=== PATIENT | female | born 1970 | race Caucasian/White ===

== ENCOUNTER 2019-06-27 22:45 | Inpatient (IN) | payer BC, OTHER, SELFPAY ==
[2019-06-27 22:47] VITALS: BMI 38.6
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
[2019-06-27 23:31] LABS: Basophils % 0.4 %; Eosinophils # 0.2 10^3/uL (0.0-0.8); Eosinophils % 2.4 %; Hematocrit 42.1 % (37.0-47.0); Hemoglobin 13.7 g/dL (11.5-15.3); Lymphocytes # 2.7 10^3/uL (0.8-4.8); Lymphocytes % 32.9 %; Mean Corpuscular HGB Conc 32.5 g/dL (30.0-36.0); Mean Corpuscular Hemoglobin 29.6 pg (28.0-34.0); Mean Corpuscular Volume 90.9 fL (81-99); Mean Platelet Volume 10.6 fL (7.4-10.4); Monocytes # 0.6 10^3/uL (0.2-0.9); Neutrophils # 4.7 10^3/uL (1.8-7.7); Neutrophils % 57.2 %; Nucleated Red Blood Cells % 0 %; Platelet Count 354 10^3/cmm (130-400); Red Blood Count 4.63 10^6/uL (4.1-5.3); Red Cell Distribution Width 13.6 % (12.1-15.1); White Blood Count 8.2 10^3/uL (4.0-10.0)
[2019-06-27 23:45] LABS: Alanine Aminotransferase 12 U/L (0-33); Albumin Level 4.3 g/dL (3.5-5.2); Alcohol Level 218 mg/dL (0-10); Alkaline Phosphatase 103 IU/L (35-105); Anion Gap 20.4 (5-19); Aspartate Amino Transferase 18 U/L (0-32); Blood Urea Nitrogen 7 mg/dL (6-20); Carbon Dioxide 22 mmol/L (22-29); Chloride 102 mmol/L (98-107); Globulin 3.2 g/dL (1.3-4.6); Glomerular Filtration Rate 75.9 mL/min (90-130); Glucose 102 mg/dL (65-115); Osmolality Calculated 288 mOsm/kg (285-295); Potassium 3.4 mmol/L (3.5-5.1); Sodium 141 mmol/L (136-145); Total Bilirubin 0.2 mg/dL (0.15-1.2); Total Protein 7.5 g/dL (6.6-8.7)
[2019-06-27 23:55] LABS: Acetaminophen < 5.0 ug/mL (10-30); Salicylate < 0.3 mg/dL (3-10)
[2019-06-28 02:10] VITALS: BP 87/56; PULSE 108; RESP 18; TEMP 36.6; O2SAT 97
[2019-06-28 06:00] VITALS: BP 92/50; PULSE 101; RESP 18; TEMP 36.9; O2SAT 95
[2019-06-28] MEDS: folic acid 1 mg Tablet PO (09:08)
[2019-06-28] MEDS: thiamine 100 mg Tablet PO (09:08)
[2019-06-28] MEDS: multivitamin therapeutic Tablet 1 TAB PO (09:08)
[2019-06-28] MEDS: aspirin 81 mg EC Tablet PO (10:48)
[2019-06-28] MEDS: amlodipine 5 mg Tablet PO (10:49)
[2019-06-28] MEDS: duloxetine 60 mg Capsule PO ×2 (10:49→17:49)
[2019-06-28] MEDS: pantoprazole DR 40 mg Tablet PO (10:49)
[2019-06-28 10:51] VITALS: BP 135/83
[2019-06-28] MEDS: losartan 50 mg Tablet PO ×2 (10:51→17:48)
[2019-06-28 12:12] LABS: Amphetamines Screen Urine Negative (Negative); Barbiturates Screen Urine Negative (Negative); Benzodiazepines Screen Urine Negative (Negative); Cocaine Screen Urine Negative (Negative); Opiate Screen Urine Negative (Negative); PCP Screen Urine Negative (Negative); THC Screen Urine Negative (Negative)
[2019-06-28 14:00] VITALS: BP 135/88; PULSE 107; RESP 18; TEMP 36.8; O2SAT 98
[2019-06-28 17:48] VITALS: BP 147/95
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
[2019-06-28] MEDS: trazodone 100 mg Tablet PO (20:10)
[2019-06-28] MEDS: nortriptyline 25 mg Capsule PO (20:10)
[2019-06-28] MEDS: quetiapine 100 mg Tablet PO (20:10)
--- NOTE | 2019-06-28 20:11 | PC.NURSE ---
HS meds given at this time.
[2019-06-28 21:26] VITALS: BP 169/97; PULSE 92; RESP 18; TEMP 36.6; O2SAT 97
[2019-06-29 06:00] VITALS: BP 128/85; PULSE 76; RESP 19; TEMP 36.5; O2SAT 96
[2019-06-29 08:52] VITALS: BP 117/77
[2019-06-29] MEDS: multivitamin therapeutic Tablet 1 TAB PO (08:52)
[2019-06-29] MEDS: amlodipine 5 mg Tablet PO (08:52)
[2019-06-29] MEDS: losartan 50 mg Tablet PO (08:52)
[2019-06-29] MEDS: thiamine 100 mg Tablet PO (08:52)
[2019-06-29] MEDS: folic acid 1 mg Tablet PO (08:52)
[2019-06-29] MEDS: pantoprazole DR 40 mg Tablet PO (08:53)
[2019-06-29] MEDS: duloxetine 60 mg Capsule PO (08:53)
[2019-06-29] MEDS: aspirin 81 mg EC Tablet PO (08:53)
[2019-06-29] MEDS: cholecalciferol (vitamin D3) 5,000 unit Tablet 5000 UNIT PO (08:53)
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
[2019-06-29] MEDS: ARIPiprazole 10 mg Tablet PO (12:13)
[2019-06-29 12:14] VITALS: BP 117/77; PULSE 76; RESP 19; TEMP 36.5; O2SAT 96
[2019-06-29 12:16] VITALS: BP 117/77; PULSE 76; RESP 19; TEMP 36.5; O2SAT 96
== END 2019-06-29 12:49 | disposition home or self-care (01) | DRG 885 ==
LOC: ER 06-28 00:24 → NP 06-28 00:51
PROVIDERS: Admitting Provider Psychiatry & Neurology Psychiatry; Emergency Provider Emergency Medicine; Family Provider Internal Medicine; PCP Internal Medicine; Visit Provider Psychiatry & Neurology Psychiatry
DX: F32.2 Major depressive disorder, single episode, severe without psychotic features (principal); R45.851 Suicidal ideations; Z79.1 Long term (current) use of non-steroidal anti-inflammatories (NSAID); Z79.82 Long term (current) use of aspirin
CPT/HCPCS: 12345; 36415; 80053; 80307; 85025; 99284

== ENCOUNTER 2019-08-20 15:16 | Outpatient (CLI) | payer BC, OTHER, SELFPAY ==
--- NOTE | 2019-08-20 15:25 | MM_ITS ---
WS: [id number] BILATERAL SCREENING DIGITAL MAMMOGRAM WITH CAD HISTORY: Screening. COMPARISON: 02/09/2018 and 10/06/2016 Bilateral CC and MLO views submitted. Computer aided detection analyzed. Breast composition: The breasts are heterogeneously dense, which may obscure small masses. No suspici ous masses, microcalcifications or architectural distortion. Benign calcification central LEFT breast . MM/[id number] IMPRESSION: BI-RADS: 2-Benign FOLLOW UP: 1 Year Follow-up
== END 2019-08-20 15:17 | disposition home or self-care (01) ==
LOC: RADSHAW 15:21
PROVIDERS: Family Provider Internal Medicine; PCP Internal Medicine; Visit Provider Internal Medicine
DX: Z12.31 Encounter for screening mammogram for malignant neoplasm of breast (principal)
CPT/HCPCS: 77067

== ENCOUNTER 2019-12-01 08:54 | Emergency (ER) | payer BC, OTHER, SELFPAY ==
[2019-12-01 08:58] VITALS: BP 141/90; PULSE 97; RESP 18; TEMP 36.7; O2SAT 97; BMI 36.7
[2019-12-01 09:04] VITALS: BP 141/90; PULSE 97; RESP 16; O2SAT 100
--- NOTE | 2019-12-01 09:06 | ED_ITS ---
HPI - Chest Pain General: Chief Complaint: Chest Pain Stated Complaint: CP Time Seen by Provider: 12/01/19 09:04 History of Present Illness: HPI narrative: 49-year-old female comes in complaining of chest pain. States chest pain began due to emotional stress. She took 3 nitros and 1 Ativan did not provide any relief the pain began about an hour and 20 minutes prior to presentation here. Pain radiates to her left shoulder and arm she had both a stress test within the last year which was negative and had a coronary angiogram in 2017 that showed luminal irregularities.according Dr. Thakur's note she has some endothelial dysfunction but is not presumably had an MO. She is not had any other symptoms has not recently been ill. MD complaint: chest pain Pertinent past history: other (Endothelial dysfunction) Onset (ago): hour(s) Timing of current episode: episodic and still present Prior episodes: Yes Onset: during rest Pain location: left chest Pain radiation: left arm and left shoulder Severity: mild Quality: tightness and heaviness Relieving factors: rest Exacerbating factors: stress Associated symptoms: Deny abdominal pain, dyspnea, fever(s), nausea or vomiting Treatment prior to arrival: nitroglycerin and other (Ativan) Review of Systems Const: Denies: fever(s), chills, body aches, change in appetite, fatigue or malaise ENMT: Denies: throat pain, ear or mastoid pain, nasal discharge or nasal congestion Card: Denies: chest pain, edema, dyspnea on exertion or orthopnea Resp: Denies: dyspnea, productive cough or non-productive cough GI: Denies: abdominal pain, nausea, vomiting, hematemesis, coffee ground emesis, diarrhea, constipation, bloating, hematochezia or melena : Denies: flank pain, difficulty voiding, dysuria, urinary frequency or urinary urgency Skin/Breast: Denies: rash or pruritus [facility] ED PFSH: Medical History (Updated 12/01/19 @ 12:08 by Garrett Stovall DO) Anxiety Chest pain Depression GERD (gastroesophageal reflux disease) History of lung cancer Insomnia Intervertebral disc disorder Surgical History (Updated 12/01/19 @ 09:27 by Garrett Stovall DO) S/P hysterectomy S/P lobectomy of lung S/P lumpectomy of breast S/P tonsillectomy and adenoidectomy S/P wisdom tooth extraction Family History (Updated 06/28/19 @ 19:37 by Srinath Yo) Family/Other Psychiatric illness Patient's fought in [place] and before that in [place]. He has PTSD and disability income. Other CAD (coronary artery disease) Cancer Hypertension Social History Smoking and tobacco status: never smoked History of recent travel: No Physical Exam Const: COMMON NORMALS: no acute distress GENERAL APPEARANCE: cooperative and comfortable ORIENTATION/CONSCIOUSNESS: Yes awake, Yes oriented to person, Yes oriented to place and Yes oriented to time HENMT: COMMON NORMALS: normocephalic, atraumatic and hearing grossly normal bilaterally HEAD & SCALP: normocephalic and atraumatic Eye: COMMON NORMALS: Equal, round and reactive pupils present, EOMs intact bilaterally, conjunctivae normal and no scleral icterus CONJUNCTIVA: Yes conjunctivae normal PUPIL: Yes Equal, round and reactive pupils present Neck/C-Spine: COMMON NORMALS: no JVD Resp: COMMON NORMALS: normal respiratory effort, No retractions, No use of accessory muscles and clear to auscultation bilaterally AUSCULTATION: clear to auscultation bilaterally Cardio: COMMON NORMALS: no JVD, regular rate, regular rhythm and No murmurs present (Cardio) RATE: regular rate RHYTHM: regular rhythm GI: COMMON NORMALS: Soft to palpation and No hepatosplenomegaly present AUSCULTATION: Yes normoactive bowel sounds PALPATION: Yes Soft to palpation, No Tenderness to palpation present (GI), No Guarding due to palpation present (GI) and Yes No hepatosplenomegaly present Extremity: COMMON NORMALS: normal to inspection, capillary refill normal, no clubbing, cyanosis or edema, no calf tenderness and no pedal edema Neuro: SENSORIUM/ORIENTATION: Yes oriented to person, Yes oriented to place and Yes oriented to time Skin: COMMON NORMALS: no rashes or lesions noted GENERAL SKIN EXAM: no rashes or lesions noted Course Vital Signs: Vital signs: Vital Signs Temperature 98.0 F 12/01/19 08:58 Pulse Rate 89 12/01/19 12:16 Respiratory Rate 19 H 12/01/19 12:16 Blood Pressure 139/88 12/01/19 12:16 Pulse Oximetry 100 12/01/19 12:16 MDM - Chest Pain MDM Narrative: Medical decision making narrative: Shayy patient with Dr. Thakur he is fine with letting her go he like to have her increase her Imdur. Relayed this to the patient we will have her double up on her Imdur until he sees her back. Asked her to call his office as soon as possible and make an appointment if she has any worsening or recurrent symptoms return to the emergency room Lab Data: Labs: Lab Results 12/01/19 12/01/19 12/01/19 Range/Units 09:15 09:15 09:15 WBC 5.6 (4.0-10.0) 10^3/ uL RBC 4.64 (4.1-5.3) 10^6/u L Hgb 14.1 (11.5-15.3) g/dL Hct 43.0 (37.0-47.0) % MCV 92.7 (81-99) fL MCH 30.4 (28.0-34.0) pg MCHC 32.8 (30.0-36.0) g/dL RDW 14.0 (12.1-15.1) % Plt Count 240 (130-400) 10^3/c mm MPV 11.4 H (7.4-10.4) fL Neut % (Auto) 61.2 % Lymph % (Auto) 27.8 % [place] % (Auto) 6.9 % Eos % (Auto) 3.2 % Baso % (Auto) 0.7 % Neut # (Auto) 3.44 (1.8-7.7) 10^3/u L Lymph # (Auto) 1.6 (0.8-4.8) 10^3/u L [place] # (Auto) 0.4 (0.2-0.9) 10^3/u L Eos # (Auto) 0.2 (0.0-0.8) 10^3/u L Baso # (Auto) 0.0 (0.0-0.1) 10^3/u L Nucleated RBC % (a uto) 0 % Nucleated RBCs # 0.0 /100WBC Sodium 138 (136-145) mmol/L Potassium 4.1 (3.5-5.1) mmol/L Chloride 102 (98-107) mmol/L Carbon Dioxide 27 (22-29) mmol/L Anion Gap 13.1 (5-19) BUN 10 (6-20) mg/dL Creatinine 0.8 (0.5-0.9) mg/dL GFR Calculation 75.9 L (90-130) mL/min Glucose 123 H (65-115) mg/dL Calculated Osmolal ity 283 L (285-295) mOsm/k g Calcium 9.3 (8.5-10.5) mg/dL Total Bilirubin 0.2 (0.15-1.2) mg/dL AST 24 (0-32) U/L ALT 16 (0-33) U/L Alkaline Phosphata se 78 (35-105) IU/L Troponin T Baselin e 6 (0-10) ng/L Troponin T 120 Min [place] (0-10) ng/L Delta Troponin T (0-10) ABS# Total Protein 6.7 (6.6-8.7) g/dL Albumin 3.9 (3.5-5.2) g/dL Globulin 2.8 (1.3-4.6) g/dL Lipase 17 (13-60) U/L 12/01/19 Range/Units 11:34 WBC (4.0-10.0) 10^3/ uL RBC (4.1-5.3) 10^6/u L Hgb (11.5-15.3) g/dL Hct (37.0-47.0) % MCV (81-99) fL MCH (28.0-34.0) pg MCHC (30.0-36.0) g/dL RDW (12.1-15.1) % Plt Count (130-400) 10^3/c mm MPV (7.4-10.4) fL Neut % (Auto) % Lymph % (Auto) % [place] % (Auto) % Eos % (Auto) % Baso % (Auto) % Neut # (Auto) (1.8-7.7) 10^3/u L Lymph # (Auto) (0.8-4.8) 10^3/u L [place] # (Auto) (0.2-0.9) 10^3/u L Eos # (Auto) (0.0-0.8) 10^3/u L Baso # (Auto) (0.0-0.1) 10^3/u L Nucleated RBC % (a uto) % Nucleated RBCs # /100WBC Sodium (136-145) mmol/L Potassium (3.5-5.1) mmol/L Chloride (98-107) mmol/L Carbon Dioxide (22-29) mmol/L Anion Gap (5-19) BUN (6-20) mg/dL Creatinine (0.5-0.9) mg/dL GFR Calculation (90-130) mL/min Glucose (65-115) mg/dL Calculated Osmolal ity (285-295) mOsm/k g Calcium (8.5-10.5) mg/dL Total Bilirubin (0.15-1.2) mg/dL AST (0-32) U/L ALT (0-33) U/L Alkaline Phosphata se (35-105) IU/L Troponin T Baselin e (0-10) ng/L Troponin T 120 Min [place] 6.00 (0-10) ng/L Delta Troponin T 0 (0-10) ABS# Total Protein (6.6-8.7) g/dL Albumin (3.5-5.2) g/dL Globulin (1.3-4.6) g/dL Lipase (13-60) U/L Discharge Plan Discharge Patient Disposition: Home Clinical Impression: Atypical chest pain Condition: Stable Prescriptions: Changed isosorbide mononitrate 30 mg Tablet Extended Release 24 Hr 30 mg PO BID Qty: 0 RF: 0 No Action esomeprazole magnesium [Nexium] 40 mg capsule,delayed release(DR/EC) 40 mg PO DAILY RF: 0 multivitamin Tablet 1 tab PO DAILY RF: 0 amlodipine 5 mg tablet 5 mg PO DAILY RF: 0 ibuprofen 800 mg tablet 800 mg PO TID PRN (Reason: Moderate Pain (Scale Score 5-6)) RF: 0 aspirin [Adult Low Dose Aspirin] 81 mg tablet,delayed release (DR/EC) 81 mg PO DAILY RF: 0 duloxetine 60 mg capsule,delayed release(DR/EC) 60 mg PO BID RF: 0 trazodone 100 mg tablet 200 mg PO BEDTIME RF: 0 cholecalciferol (vitamin D3) 125 mcg (5,000 unit) capsule 5,000 unit PO DAILY RF: 0 losartan 50 mg tablet 50 mg PO BID RF: 0 aripiprazole 10 mg Tablet 10 mg PO DAILY Qty: 30 RF: 1 carvedilol 6.25 mg tablet 6.25 mg PO BID RF: 0 magnesium 250 mg Tablet 250 mg PO DAILY RF: 0 albuterol sulfate 90 mcg/actuation Hfa Aerosol Inhaler 1 inh INHALATION QID PRN (Reason: Shortness Of Breath) RF: 0 Symbicort 160-4.5 mcg/actuation HFA aerosol inhaler 1 puff INHALATION DAILY PRN (Reason: Shortness Of Breath) RF: 0 Blueberry Flavor Liquid 1 ea MISCELLANEOUS DAILY RF: 0 Discharge Orders: Discharge Order (Routine); Ordered 12/01/19 Ordered By: Garrett Stovall Referrals: Kitty Dumont MD [Primary Care Provider] - Discharge Diet: Advance as tolerated Discharge Activity: Limit activity as instructed Activity Restrictions/Additional Instructions: Follow-up with Dr. Thakur this coming week. If you have any further episodes of chest pain return to the emergency room. Increase your isosorbide to twice daily until you follow-up with Dr. Thakur Discharge Date/Time: 12/01/19 12:16 Coding Level of Care Code ED Outbound Sales Consultant for Chg Fwd Exam Comprehensive
--- NOTE | 2019-12-01 09:07 | ECG_ITS ---
[facility] Test Date: 2019-12-01 Pat Name: Mariluz Barbosa Department: Room: Gender: Female [employer] Hand: : 1970 Requested By: Garrett Brown Order Number: [id number] [place] MD: Florin Bryan M.D. Measurements Intervals [place] Rate: 95 P: 57 NH: 137 QRS: -13 QRSD: 87 T: 48 QT: 354 QTc: 447 Interpretive Statements SINUS RHYTHM LOW QRS VOLTAGE IN PRECORDIAL LEADS [QRS DEFLECTION < 1.0 mV IN CHEST LEADS] Compared to ECG 02/16/2018 16:16:31 Sinus arrhythmia no longer present Electronically Signed On 12-02-2019 18:10:07 CDT by Florin Bryan M.D. [id number]
--- NOTE | 2019-12-01 09:07 | XRR_ITS ---
PROCEDURE INFORMATION: Exam: XR Chest, 1 View Exam date and time: 12/01/2019 9:08 AM Age: 49 years old Clinical indication: Chest pain; Type not specified; Patient HX: History of lung cancer TECHNIQUE: Imaging protocol: XR of the chest Views: 1 view. COMPARISON: CR Chest 1 [place] [id number] 02/16/2018 4:59 PM FINDINGS: Lungs: No focal consolidation. Pleural space: Unremarkable. No pleural effusion. No pneumothorax. Heart/Mediastinum: Silhouette of the left heart border. Possibly related to the prior partial lobectomy. Surgical clips within the dense left hilum. Consider CT. Bones/joints: Unremarkable. XR/XR chest 1V portable [id number] IMPRESSION: 1. Silhouette of the left heart border. Possibly related to the prior partial lobectomy. Surgical clips within the dense left hilum. Consider CT. 2. No focal consolidation.
[2019-12-01 09:25] LABS: Basophils % 0.7 %; Eosinophils # 0.2 10^3/uL (0.0-0.8); Eosinophils % 3.2 %; Hemoglobin 14.1 g/dL (11.5-15.3); Lymphocytes # 1.6 10^3/uL (0.8-4.8); Lymphocytes % 27.8 %; Mean Corpuscular HGB Conc 32.8 g/dL (30.0-36.0); Mean Corpuscular Hemoglobin 30.4 pg (28.0-34.0); Mean Corpuscular Volume 92.7 fL (81-99); Mean Platelet Volume 11.4 fL (7.4-10.4); Monocytes # 0.4 10^3/uL (0.2-0.9); Monocytes % 6.9 %; Neutrophils # 3.44 10^3/uL (1.8-7.7); Neutrophils % 61.2 %; Nucleated Red Blood Cells % 0 %; Platelet Count 240 10^3/cmm (130-400); Red Blood Count 4.64 10^6/uL (4.1-5.3); White Blood Count 5.6 10^3/uL (4.0-10.0)
[2019-12-01 09:42] LABS: Alanine Aminotransferase 16 U/L (0-33); Albumin Level 3.9 g/dL (3.5-5.2); Alkaline Phosphatase 78 IU/L (35-105); Blood Urea Nitrogen 10 mg/dL (6-20); Calcium 9.3 mg/dL (8.5-10.5); Carbon Dioxide 27 mmol/L (22-29); Chloride 102 mmol/L (98-107); Globulin 2.8 g/dL (1.3-4.6); Glomerular Filtration Rate 75.9 mL/min (90-130); Glucose 123 mg/dL (65-115); Lipase 17 U/L (13-60); Osmolality Calculated 283 mOsm/kg (285-295); Sodium 138 mmol/L (136-145); Total Bilirubin 0.2 mg/dL (0.15-1.2); Total Protein 6.7 g/dL (6.6-8.7)
[2019-12-01 09:44] LABS: Troponin(5th) Baseline 6 ng/L (0-10)
[2019-12-01 09:46] LABS: Anion Gap 13.1 (5-19); Potassium 4.1 mmol/L (3.5-5.1)
[2019-12-01 09:47] LABS: Aspartate Amino Transferase 24 U/L (0-32)
[2019-12-01 09:56] VITALS: BP 141/90; PULSE 83; RESP 17; O2SAT 100
[2019-12-01] MEDS: ondansetron 2 mg/ML SDV 2 mL 4 MG IVP (10:02)
[2019-12-01 10:03] VITALS: RESP 16; O2SAT 100
[2019-12-01] MEDS: morphine 4 mg/mL SDV 1 mL 2 MG IVP (10:03)
[2019-12-01 10:09] VITALS: BP 131/84; PULSE 85; RESP 13; O2SAT 99
--- NOTE | 2019-12-01 11:07 | ECG_ITS ---
[facility] Test Date: 2019-12-01 Pat Name: Mariluz Barbosa Department: Room: Gender: Female [employer]: : 1970 Requested By: Garrett Brown Order Number: [id number] [place] MD: Florin Bryan M.D. Measurements Intervals [place] Rate: 65 P: 47 SD: 151 QRS: -5 QRSD: 88 T: 50 QT: 418 QTc: 435 Interpretive Statements SINUS RHYTHM Compared to ECG 12/01/2019 09:02:50 No significant changes Electronically Signed On 12-02-2019 18:14:13 CDT by Florin Bryan M.D. [id number]
[2019-12-01 11:59] LABS: Troponin 5 2HR Delta 0 ABS# (0-10)
[2019-12-01 12:16] VITALS: BP 139/88; PULSE 89; RESP 19; O2SAT 100
== END 2019-12-01 12:16 | disposition home or self-care (01) ==
PROVIDERS: Emergency Provider Family Medicine; PCP Internal Medicine
DX: R07.89 Other chest pain (principal); Z79.82 Long term (current) use of aspirin; Z85.118 Personal history of other malignant neoplasm of bronchus and lung; Z90.2 Acquired absence of lung [part of]
CPT/HCPCS: 12345; 36415; 71045; 80053; 83690; 84484; 85025; 93005; 96374; 96375; 99283; 99284; J2270; J2405

== ENCOUNTER → 2019-12-31 14:36 | Outpatient (BNVA) | payer BC, OTHER, SELFPAY | PROVIDERS: PCP Internal Medicine; Referring Provider Internal Medicine; Visit Provider Podiatrist Foot & Ankle Surgery | DX: M79.671 Pain in right foot (principal); M79.672 Pain in left foot | CPT/HCPCS: 73630 ==

== ENCOUNTER 2020-06-30 14:55 | Emergency (ER) | payer BC, OTHER, SELFPAY ==
[2020-06-30 15:00] VITALS: BP 131/84; PULSE 89; RESP 18; TEMP 36.8; O2SAT 98; BMI 38.6
--- NOTE | 2020-06-30 15:14 | XR_ITS ---
WS: [id number] XR foot LT min 3V* [id number] REASON FOR EXAM: pain, trauma FINDINGS: The examination is unchanged compared to previous study of 12/31/2019. No fracture or dislocation is identified. No soft tissue abnormality is noted. Small enthesophytes from the anterior and posterior calcaneus. XR/XR foot LT min 3V* [id number] IMPRESSION: No acute abnormality.
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
== END 2020-06-30 17:10 | disposition home or self-care (01) ==
LOC: ER 15:57
PROVIDERS: Emergency Provider Nurse Practitioner Family; PCP Internal Medicine
DX: M79.672 Pain in left foot (principal); Z79.82 Long term (current) use of aspirin; I10 Essential (primary) hypertension; Z85.118 Personal history of other malignant neoplasm of bronchus and lung; Z90.2 Acquired absence of lung [part of]
CPT/HCPCS: 73630; 99282

== ENCOUNTER 2020-07-10 15:56 | Outpatient (CLI) | payer BC, OTHER, SELFPAY | END 2020-07-10 15:57 | disposition home or self-care (01) | LOC: SPT 15:57 | PROVIDERS: PCP Internal Medicine; Visit Provider Podiatrist Foot & Ankle Surgery | DX: Z46.89 Encounter for fitting and adjustment of other specified devices (principal); M72.2 Plantar fascial fibromatosis | CPT/HCPCS: 97760; L4361 ==

== ENCOUNTER 2020-09-01 14:50 | Outpatient (CLI) | payer BC, OTHER, SELFPAY | END 2020-09-01 14:51 | disposition home or self-care (01) | LOC: SPT 14:50 | PROVIDERS: PCP Internal Medicine; Visit Provider Podiatrist Foot & Ankle Surgery | DX: Z46.89 Encounter for fitting and adjustment of other specified devices (principal); M79.673 Pain in unspecified foot; M72.2 Plantar fascial fibromatosis | CPT/HCPCS: L3030 ==

== ENCOUNTER → 2020-09-24 15:01 | Outpatient (BNVA) | payer BC, OTHER, SELFPAY | PROVIDERS: PCP Internal Medicine | DX: M79.672 Pain in left foot (principal) | CPT/HCPCS: 73630 ==

== ENCOUNTER 2021-11-03 14:42 | Outpatient (CLI) | payer BC, OTHER, SELFPAY ==
--- NOTE | 2021-11-03 14:48 | XR_ITS ---
WS: [id number] SCREENING DEXA SCAN LYCEEM CLINICAL INFORMATION: POSTMENOPAUSAL COMPARISON: None. FINDINGS: The L1-L4 bone mineral density measures 1.160 g/cm2. This corresponds to a T score score of -0.2 and Z score of 0.5. Left femoral neck bone mineral density measures 0.996 g/cm2. This corresponds to a T score of -0.1 an d Z score of 0.5. Right femoral neck bone mineral density measures 0.993 g/cm2. This corresponds to a T score -0.1of an d Z score of 0.5. Mean femoral neck bone mineral density measures 0.994 g/cm2. This corresponds to a T score of -0.1 an d Z score of 0.5. XR/XR DEXA axial skeleton* [id number] IMPRESSION: Normal bone mineralization. Patient's FRAX calculated 10 year probability for major osteoporotic fracture i s 7.3 % and osteoporotic hip fracture is 0.5%.
== END 2021-11-03 14:43 | disposition home or self-care (01) ==
LOC: RAD 14:43
PROVIDERS: PCP Internal Medicine; Visit Provider Internal Medicine
DX: Z78.0 Asymptomatic menopausal state (principal)
CPT/HCPCS: 77080

== ENCOUNTER 2022-01-15 08:21 | Outpatient (CLI) | payer BC, OTHER, SELFPAY ==
--- NOTE | 2022-01-15 08:26 | MM_ITS ---
WS: [id number] VIEWS: MLO and CC views both breasts. 3D digital tomosynthesis is also included in this exam. Comparison made with prior exam of 04/29/2011, 12/27/2012, 05/28/2014, 10/06/2016, 02/09/2018, 08/20/2019.. Findings: There was no sign of mass, architectural distortion or suspicious calcification in either breast. [place] mogeneously dense MM/[place] [id number] Impression: BI-RADS: 2-Benign FOLLOW-UP: 1 Year Follow-up This mammogram was also analyzed by the Computer Aided Detection System R2 Imag e Soloist Dancer.
== END 2022-01-15 08:22 | disposition home or self-care (01) ==
LOC: RAD 08:21
PROVIDERS: PCP Internal Medicine; Visit Provider Internal Medicine
DX: Z12.31 Encounter for screening mammogram for malignant neoplasm of breast (principal)
CPT/HCPCS: 77063; 77067

== ENCOUNTER 2023-01-19 11:49 | Outpatient (CLI) | payer BC, OTHER, SELFPAY ==
--- NOTE | 2023-01-19 12:04 | XR_ITS ---
WS: [email or web address] EXAMINATION: XR chest 2V* [id number] REASON FOR EXAM: Acute cough COMPARISON: 12/01/2019 ORDER DATE: 01/19/2023 12:05 PM FINDINGS: The lungs are clear of infiltrate. The cardiac and mediastinal outlines are unremarkable except fo r the left hilar density increase which is unchanged from previous and associated with numerous surgi yonathan clips. Nipple rings noted bilaterally IMPRESSION: NO SIGNIFICANT CHANGE FROM PREVIOUS.
== END 2023-01-19 11:50 | disposition home or self-care (01) ==
PROVIDERS: PCP Internal Medicine; Visit Provider Nurse Practitioner Family
DX: R05.1 Acute cough (principal)
CPT/HCPCS: 71046

== ENCOUNTER 2023-03-29 13:58 | Outpatient (CLI) | payer BC, OTHER, SELFPAY ==
--- NOTE | 2023-03-29 14:02 | CT_ITS ---
WS: [id number] LDCT LUNG CANCER SCREENING TECHNIQUE: Noncontrast CT of the chest with coronal and sagittal reformatted images. CLINICAL INFORMATION: HX OF TOBACCO USE COMPARISON: None. DLP: 45.30 mGy.cm DIvol: Mean CTDIvol: 0.80 (mGy) All CT scans at [facility] use at least one of these dose optimization techniques: automat ed exposure control; mA and/or kV adjustment per patient size (includes targeted exams where dose is matched to clinical indication); or iterative reconstruction. FINDINGS: Prior postoperative changes LEFT upper lobectomy with surgical clips LEFT hilum. No suspicious pulmon kurt parenchymal opacities. Normal noncontrast aorta. No missile or hilar lymphadenopathy. No axillary lymphadenopathy. Adrenal glands are normal. Postoperative changes stomach. Moderate thoracic kyphosis. IMPRESSION: CT/CT lung screening [id number] LUNG-RADS: 1-Negative FOLLOW UP: 12 Month: Continue annual screening with LDCT
== END 2023-03-29 13:59 | disposition home or self-care (01) ==
LOC: RAD 13:58
PROVIDERS: PCP Internal Medicine; Visit Provider Internal Medicine
DX: Z12.2 Encounter for screening for malignant neoplasm of respiratory organs (principal); Z87.891 Personal history of nicotine dependence
CPT/HCPCS: 71271

== ENCOUNTER 2023-06-30 13:20 | Outpatient (CLI) | payer BC, OTHER, SELFPAY ==
--- NOTE | 2023-06-30 09:00 | MM_ITS ---
WS: [id number] BILATERAL SCREENING DIGITAL TOMOSYNTHESIS MAMMOGRAM WITH CAD HISTORY: SCREENING COMPARISON: 01/15/2022, 08/20/2019 Bilateral CC and MLO views with tomosynthesis and synthetic mammography submitted. Computer aided det ection analyzed. Breast composition: The breasts are heterogeneously dense, which may obscure small masses. No suspici ous masses, microcalcifications or architectural distortion. IMPRESSION: MM/[place] [id number] BI-RADS: 1-Negative FOLLOW UP: 1 Year Follow-up
== END 2023-06-30 13:21 | disposition home or self-care (01) ==
LOC: MOBLMAM 13:25
PROVIDERS: PCP Internal Medicine; Visit Provider Internal Medicine
DX: Z12.31 Encounter for screening mammogram for malignant neoplasm of breast (principal)
CPT/HCPCS: 77063; 77067